=== PATIENT | male | born 1960 | race Caucasian/White ===

== ENCOUNTER → 2018-01-17 00:43 | Outpatient (CLI) | payer BC, SELFPAY ==
[2018-01-17 07:47] LABS: Abs Immature Grans 0.01 k/cumm (0.0-0.09); Absolute Basophil Count 0.03 k/cumm (0.0-0.2); Absolute Eosinophil Count 0.11 k/cumm (0.0-0.7); Absolute Lymphocyte Count 1.55 k/cumm (1.2-3.4); Absolute Monocyte Count 0.66 k/cumm (0.11-0.7); Basophils % 0.4; Eosinophils % 1.5; HCT 45.4 % (40.0-50.0); HGB 15.2 g/dL (13.5-17.5); Immature Grans % 0.1; Lymphocytes % 21.1; Mean Corp. HGB Concentration 33.5 g/dL (32.0-36.0); Mean Corpuscular Hemoglobin 31.1 pg (27.0-33.0); Mean Corpuscular Volume 92.8 fL (80-95); Mean Platelet Volume 9.9 fL (8.0-11.0); Neutrophils % 67.9; Platelet Count 249 x1000/uL (130-400); RBC 4.89 m/cumm (4.50-6.00); RBC Distribution Width 13.1 % (11.8-14.1); White Blood Cell Count 7.36 k/cumm (4.4-10.8)
[2018-01-17 07:51] LABS: Hemoglobin A1C 5.7 % (4.5-6.2)
[2018-01-17 07:57] LABS: Bilirubin Negative (Negative); Blood Negative (Negative); Clarity Clear; Glucose Negative (Negative); Ketones Negative (Negative); Leukocyte Esterase Negative (Negative); Nitrite Negative (Negative); Specific Gravity 1.025 (1.005-1.025); pH 6.5 (5-8)
[2018-01-17 08:25] LABS: ESR 7 MM/HR (1-20)
[2018-01-17 08:32] LABS: ALT 38 U/L (12-78); AST 16 U/L (15-37); Albumin 3.9 g/dL (3.4-5.0); Alkaline Phosphatase 75 U/L (46-116); Anion Gap 6.5 mmol/L (3-11); BUN 23 mg/dL (7-18); Bilirubin, Total 0.5 mg/dL (0.2-1.0); CO2 29.5 mmol/L (21.0-32.0); CREATININE 1.03 mg/dL (0.70-1.30); Calcium 8.9 mg/dL (8.5-10.1); Chloride 106 mmol/L (98-107); Glucose 107 mg/dL (70-100); Potassium 4.2 mmol/L (3.5-5.1); Sodium 142 mmol/L (136-145); TSH (W/Ref FT4) 1.37 uIU/mL (0.358-3.74); Total Protein 6.6 g/dL (6.4-8.2)
== END ==
PROVIDERS: PCP Emergency Medicine; Visit Provider Family Medicine
DX: R63.4 Abnormal weight loss (principal); Z12.5 Encounter for screening for malignant neoplasm of prostate
CPT/HCPCS: 36415; 80053; 84153; 85652; 81003; 83036; 84443; 85025

== ENCOUNTER 2018-10-08 12:22 | Outpatient (CLI) | payer BC, SELFPAY ==
--- NOTE | 2018-10-08 06:00 | DI.RAD_ITS ---
SYMPTOMS/DIAGNOSIS: CERVICAL RADICULOPATHY PAIN CLINIC CERVICAL SPINE: Fluoroscopy Time: 14 sec Images submitted from the Pain Clinic demonstrate needle positioning over the lower cervical spine in conjunction with an epidural steroid injection carried out by Dr. Borrero. Please see the procedure report for further information.
[2018-10-08 12:43] VITALS: BP 138/87; PULSE 68; RESP 16; TEMP 37; O2SAT 93
[2018-10-08 13:15] VITALS: BP 143/96; PULSE 70; RESP 17; O2SAT 99
[2018-10-08] MEDS: Omnipaque 240 MG/ML 50 ML BTL IJ (13:18)
[2018-10-08] MEDS: methylPREDNISolone ACETATE 40 MG/ML VIAL IJ (13:19)
--- NOTE | 2018-10-08 13:19 | PDOC.PAIN ---
Pain Clinic Procedure Note Current Active Problems Problem Status Onset Cervical stenosis of spinal canal Chronic Cervical Epidural Steroid Injection VIET YOUNG has been referred to the [facility] for cervical epidural steroid injection. COMMENTS:Patient has had multiple epidural steroid injections with good relief for almost a year each time. He has mostly neck pain with cervical stenosis. Patient was interviewed and the medical record reviewed. There were no medical, pharmacologic, radiographic or other structural contraindications to attempting fluoroscopically guided epidural steroid injection. Risks and expected side effects as well as potential benefit of the procedure were reviewed and voiced concerns addressed. The printed consent form was signed and witnessed. Standard time-out procedure was performed. The patient was placed in the prone position on the fluoroscopy table and automated blood pressure cuff and pulse oximeter applied. The skin entry point for entering the epidural space by a midline C7-T1 interlaminar approach was identified under fluoroscopy and marked. Following thorough Chlorhexadine preparation of the skin and draping and 1% lidocaine infiltration of the skin entry point and subcutaneous tissues, an 17 gauge Tuohy needle was placed under fluoroscopic guidance and with loss of resistance technique into the epidural space. Upon needle placement and loss of resistance there were no paresthesiae or return of blood or CSF through the needle. An Arrow catheter was thread cephalad to the T0sflzg midline. 1ml of Omnipaque 240 were injected with clear epidural spread in the A/P, lateral and oblique views. 80mg Depomedrol with 1ml sterile normal saline were injected through the catheter with no unusual discomfort expressed. Vital signs were stable throughout the procedure and were as recorded in the docflowsheet by the nursing staff. If given, dosages of intravenous drugs for anxiolysis and analgesia were documented in MAR. Follow up plans and appointments were discussed. Post procedure instruction was given as documented in nursing documentation and having met discharge criteria and was discharged from the [facility]. COMMENTS: He will follow up as needed CC: Fernando Crowder DO
== END 2018-10-08 12:42 ==
PROVIDERS: PCP Emergency Medicine; Visit Provider Anesthesiology Pain Medicine
DX: M48.02 Spinal stenosis, cervical region (principal)
CPT/HCPCS: 62321; 72040; J1030; Q9967

== ENCOUNTER 2018-10-31 11:05 | Emergency (ER) | payer BC, SELFPAY ==
[2018-10-31] VITALS (12 sets, daily range): BP systolic 139–150; BP diastolic 83–93; PULSE 55–68; RESP 14–27; TEMP 36.7; O2SAT 94–97
--- NOTE | 2018-10-31 11:34 | W.ED.GENAD ---
Discharge Plan Disposition Patient Disposition: HOME Condition: Stable Discharge Details Chief Complaint: Headache Clinical Impression: Cervical stenosis of spinal canal, Migraine Primary Care Provider: Fernando Crowder ED Provider: George Valdivia Home Meds and New Rx's Prescriptions: Continued amlodipine 5 MG tablet 5 mg PO DAILY Qty: 90 RF: 4 Eurax 60 GM lotion 60 gm Topical Twice Qty: 1 RF: 1 omeprazole 20 mg capsule,delayed release(DR/EC) 20 mg PO DAILY Qty: 90 RF: 4 baclofen 10 mg tablet 10 mg PO DAILY Qty: 90 RF: 3 lorazepam 0.5 mg tablet 1.5 mg PO HS Qty: 90 RF: 5 No Action diclofenac sodium 75 mg tablet,delayed release (DR/EC) PO Qty: 90 RF: 0 Discharge Instructions Instructions: Migraine Headache (ED) Additional Instructions: Continue to take your normal medication and you may also use [id number] Excedrin Migraine for any further headache symptoms. Return to the emergency department for any new or significant worsening of symptoms otherwise follow-up with your primary care provider for reassessment. Referrals: Fernando Crowder, [Primary Care Provider] - (As needed for reassessment) Discharge Data Discharge Date/Time-TO BE ENTERED AT DEPARTURE: 10/31/18 14:35 Medical Decision Making Patient presenting to the emergency department for chief complaint of headache. Patient states that he has a long ongoing history of headaches some of more secondary to his chronic neck pain. Patient typically gets 1 injection/year into his neck which relieves his neck symptoms and significantly reduces or eliminates his headache. Patient states that he had injection a couple weeks ago that per his report felt different and since then has had intermittent headaches over the past couple weeks. He does state that this headache feels similar to previous ones and feels behind his left eye with photophobia nausea and vomiting. Patient denies any injury or trauma, fever chills, focal neurological deficits. Physical exam shows some photophobia and cervical soft tissue tenderness diffuse to the left trapezius without any specific finding through the cervical vertebral bodies. Patient is otherwise neurologically intact with no focal deficits noted on exam. Plan to treat headache with ketorolac, Compazine, Benadryl, diazepam, and IV fluids and review pain clinic notes. After review of pain clinic notes it appears that his epidural injection was without any complications but consideration of cervical epidural abscess or hematoma is a possibility so plan to check labs and CT imaging but given that this was actually almost a month ago I feel that these are low likelihood's. Pending these results patient was reassessed and stated that he is started having significant improvement of his headache. Labs were reviewed and show no significant leukocytosis, otherwise nondiagnostic CMP with no worrisome findings. Discussed with radiologist cervical CT with contrast which showed no acute findings. Patient reassessed and stated full resolution of his pain and discomfort. Patient was encouraged to follow-up with his primary care provider and/or pain clinic for further discussion about controlling his discomfort otherwise to continue to use his typical headache medications that he uses at home. Emergent return precautions were discussed. After discussion of diagnosis and plan of care patient is no further needs, questions, or concerns and states clear understanding to return to the emergency department for any worsening symptoms. HPI General Mode of arrival: ambulatory. Date/Time Provider Initiated Documentation: 10/31/18 11:14. Limitations to Documentation: no limitations. Information obtained by: patient and RN notes reviewed. History of Present Illness 58 year old M presents to the emergency department with the chief complaint of headache, described as moderate and similar to prior episodes, with intensity rated at 9. Quality is described as sharp, and is localized to the head. Patient started experiencing this week(s) (2) and it has been intermittent. Patient notes nausea/vomiting. Patient did receive the following treatments prior to arrival, NSAID Related Data Home Medications Medication Instructions Recorded Confirmed amlodipine 5 mg PO DAILY #90 tab-cap 12/31/17 11/03/18 Eurax 60 gm TOPICAL Twice #1 script 02/14/18 11/03/18 omeprazole 20 mg capsule,delayed 20 mg PO DAILY #90 tab-cap 03/12/18 11/03/18 release baclofen 10 mg tablet 10 mg PO DAILY #90 tab 05/27/18 11/03/18 lorazepam 0.5 mg tablet 1.5 mg PO HS #90 tab-cap 08/19/18 11/03/18 diclofenac sodium 75 mg PO #90 tab 11/03/18 11/03/18 tablet,delayed release Previous Rx's Medication Instructions Recorded amlodipine 5 mg PO DAILY #90 tab-cap 12/31/17 Eurax 60 gm TOPICAL Twice #1 script 02/14/18 omeprazole 20 mg capsule,delayed 20 mg PO DAILY #90 tab-cap 03/12/18 release baclofen 10 mg tablet 10 mg PO DAILY #90 tab 05/27/18 lorazepam 0.5 mg tablet 1.5 mg PO HS #90 tab-cap 08/19/18 Allergies Allergy/AdvReac Type Severity Reaction Status Date / Time No Known Allergies Allergy Verified 11/03/18 08:49 General Stated Complaint: Headache KATHLEEN: 3 Review of Systems Constitutional Denies body ache(s), Reports chills, Denies fever(s) and Reports headache(s) Eyes Denies change in vision and Reports photophobia ENT Denies dizziness, Reports headache(s) and Reports neck pain (chronic) Cardiovascular Denies chest pain and Denies syncope Gastrointestinal Reports nausea and Reports vomiting Musculoskeletal Reports neck pain (chronic), Denies numbness and Denies tingling Neurologic Reports as per HPI, Denies confusion, Denies dizziness, Denies syncope, Reports headache(s), Denies numbness, Denies sensory deficit and Denies tingling Psychiatric Denies confusion PFSH Surgical History Colonoscopy - MAC Hemorrhoidectomy Social History Smoking/Tobacco Use Status: Never Alcohol Intake: current Alcohol Intake frequency: 3 or more drinks per day Alcohol type: beer Drug use: Never Do you feel safe at home: Yes Do you feel safe in your relationship?: Yes Additional Social history: unable to assess privately Exam Const General: cooperative, healthy appearing, no acute distress and well groomed Orientation: alert, awake and oriented x3 HENMT Head: normal to inspection Ears: hearing grossly normal bilaterally and TM's normal bilaterally Mouth: oral mucosae normal and moist mucous membranes Throat: posterior oropharynx normal Eyes Visual Rdz: normal visual rdz by confrontation Alignment and Position: alignment normal Periorbital: periorbital findings normal Eyelids: eyelids normal Sclera: sclerae normal Cornea: corneas normal Pupils: PERRL EOM: EOM intact bilaterally Neck Neck: normal visual inspection, full ROM, no lymphadenopathy and no meningeal signs Resp Effort & Inspection: normal respiratory effort and able to speak in complete sentences Auscultation: clear to auscultation bilaterally Cardio Rate: regular rate Rhythm: regular rhythm Heart Sounds: S1 normal and S2 normal Back/Spine/Pelvis Cervical Spine: cervical muscular tenderness (> on left), No cervical spinal tenderness and No step off deformity Neuro General: alert, awake, oriented x3, gait normal, tone normal, moves all extremities, CN's II-XI intact bilaterally and not confused Cognition: normal cognition Speech: speech normal Motor: muscle tone normal throughout, strength 5/5 throughout, no pronator drift, no movement abnormalities noted and no fasciculations Sensory Exam: no sensory deficits noted Coordination: Romberg test normal, Does not sway with eyes open and rapid alternating movement UE normal Course Vital Signs Temperature 36.7 C 10/31/18 11:08 Pulse 65 10/31/18 11:08 Respiratory Rate 17 10/31/18 11:08 Blood Pressure 150/93 H 10/31/18 11:08 Pulse Oximetry 97 10/31/18 11:08 Temperature 36.7 C 10/31/18 11:08 Temperature Source Temporal Artery Scan 10/31/18 11:08 Pulse 65 10/31/18 11:08 Respiratory Rate 17 10/31/18 11:08 Respiratory Effort Non-Labored 10/31/18 11:16 Blood Pressure 150/93 H 10/31/18 11:08 Blood Pressure Position Sitting 10/31/18 11:08 Pulse Oximetry 97 10/31/18 11:08 Oxygen Delivery Method Room Air 10/31/18 11:08 Oxygen Flow Rate 0 10/31/18 11:08 Pain Level 10 10/31/18 11:16 Comment 10/31/18 11:08
--- NOTE | 2018-10-31 11:37 | ED.GENADUL_ITS ---
Discharge Plan Disposition Patient Disposition: HOME Condition: Stable Discharge Details Chief Complaint: Headache Clinical Impression: Cervical stenosis of spinal canal, Migraine Primary Care Provider: Fernando Crowder ED Provider: George Valdivia Home Meds and New Rx's Prescriptions: Continued amlodipine 5 MG tablet 5 mg PO DAILY Qty: 90 RF: 4 Eurax 60 GM lotion 60 gm Topical Twice Qty: 1 RF: 1 omeprazole 20 mg capsule,delayed release(DR/EC) 20 mg PO DAILY Qty: 90 RF: 4 baclofen 10 mg tablet 10 mg PO DAILY Qty: 90 RF: 3 lorazepam 0.5 mg tablet 1.5 mg PO HS Qty: 90 RF: 5 No Action diclofenac sodium 75 mg tablet,delayed release (DR/EC) PO Qty: 90 RF: 0 Discharge Instructions Instructions: Migraine Headache (ED) Additional Instructions: Continue to take your normal medication and you may also use [id number] Excedrin Migraine for any further headache symptoms. Return to the emergency department for any new or significant worsening of symptoms otherwise follow-up with your primary care provider for reassessment. Referrals: Fernando Crowder, [Primary Care Provider] - (As needed for reassessment) Discharge Data Discharge Date/Time-TO BE ENTERED AT DEPARTURE: 10/31/18 14:35 Medical Decision Making Patient presenting to the emergency department for chief complaint of headache. Patient states that he has a long ongoing history of headaches some of more secondary to his chronic neck pain. Patient typically gets 1 injection/year into his neck which relieves his neck symptoms and significantly reduces or eliminates his headache. Patient states that he had injection a couple weeks ago that per his report felt different and since then has had intermittent headaches over the past couple weeks. He does state that this headache feels similar to previous ones and feels behind his left eye with photophobia nausea and vomiting. Patient denies any injury or trauma, fever chills, focal neurological deficits. Physical exam shows some photophobia and cervical soft tissue tenderness diffuse to the left trapezius without any specific finding through the cervical vertebral bodies. Patient is otherwise neurologically intact with no focal deficits noted on exam. Plan to treat headache with ketorolac, Compazine, Benadryl, diazepam, and IV fluids and review pain clinic notes. After review of pain clinic notes it appears that his epidural injection was without any complications but consideration of cervical epidural abscess or hem atoma is a possibility so plan to check labs and CT imaging but given that this was actually almost a month ago I feel that these are low likelihood's. Pending these results patient was reassessed and stated that he is started having significant improvement of his headache. Labs were reviewed and show no significant leukocytosis, otherwise nondiagnostic CMP with no worrisome findings. Discussed with radiologist cervical CT with contrast which showed no acute findings. Patient reassessed and stated full resolution of his pain and discomfort. Patient was encouraged to follow-up with his primary care provider and/or pain clinic for further discussion about controlling his discomfort otherwise to continue to use his typical headache medications that he uses at home. Emergent return precautions were discussed. After discussion of diagnosis and plan of care patient is no further needs, questions, or concerns and states clear understanding to return to the emergency department for any worsening symptoms. HPI General Mode of arrival: ambulatory . Date/Time Provider Initiated Documentation: 10/31/18 11:14 . Limitations to Documentation: no limitations . Information obtained by: patient and RN notes reviewed . History of Present Illness 58 year old M presents to the emergency department with the chief complaint of headache, described as moderate and similar to prior episodes, with intensity rated at 9. Quality is described as sharp, and is localized to the head. Patient started experiencing this week(s) (2) and it has been intermittent. Patient notes nausea/vomiting. Patient did receive the following treatments prior to arrival, NSAID Related Data Home Medications Medication Instructions Recorded Confirmed amlodipine 5 mg PO DAILY #90 tab-cap 12/31/17 11/03/18 Eurax 60 gm TOPICAL Twice #1 script 02/14/18 11/03/18 omeprazole 20 mg capsule,delayed 20 mg PO DAILY #90 tab-cap 03/12/18 11/03/18 release baclofen 10 mg tablet 10 mg PO DAILY #90 tab 05/27/18 11/03/18 lorazepam 0.5 mg tablet 1.5 mg PO HS #90 tab-cap 08/19/18 11/03/18 diclofenac sodium 75 mg PO #90 tab 11/03/18 11/03/18 tablet,delayed release Previous Rx's Medication Instructions Recorded amlodipine 5 mg PO DAILY #90 tab-cap 12/31/17 Eurax 60 gm TOPICAL Twice #1 script 02/14/18 omeprazole 20 mg capsule,delayed 20 mg PO DAILY #90 tab-cap 03/12/18 release baclofen 10 mg tablet 10 mg PO DAILY #90 tab 05/27/18 lorazepam 0.5 mg tablet 1.5 mg PO HS #90 tab-cap 08/19/18 Allergies Allergy/AdvReac Type Severity Reaction Status Date / Time No Known Allergies Allergy Verified 11/03/18 08:49 General Stated Complaint: Headache KATHLEEN: 3 Review of Systems Constitutional Denies body ache(s), Reports chills, Denies fever(s) and Reports headache(s) Eyes Denies change in vision and Reports photophobia ENT Denies dizziness, Reports headache(s) and Reports neck pain (chronic) Cardiovascular Denies chest pain and Denies syncope Gastrointestinal Reports nausea and Reports vomiting Musculoskeletal Reports neck pain (chronic), Denies numbness and Denies tingling Neurologic Reports as per HPI, Denies confusion, Denies dizziness, Denies syncope, Reports headache(s), Denies numbness, Denies sensory deficit and Denies tingling Psychiatric Denies confusion PFS Surgical History Colonoscopy - MAC Hemorrhoidectomy Social History Smoking/Tobacco Use Status: Never Alcohol Intake: current Alcohol Intake frequency: 3 or more drinks per day Alcohol type: beer Drug use: Never Do you feel safe at home: Yes Do you feel safe in your relationship?: Yes Additional Social history: unable to assess privately Exam Const General: cooperative, healthy appearing, no acute distress and well groomed Orientation: alert, awake and oriented x3 HENMT Head: normal to inspection Ears: hearing grossly normal bilaterally and TM's normal bilaterally Mouth: oral mucosae normal and moist mucous membranes Throat: posterior oropharynx normal Eyes Visual Rdz: normal visual rdz by confrontation Alignment and Position: alignment normal Periorbital: periorbital findings normal Eyelids: eyelids normal Sclera: sclerae normal Cornea: corneas normal Pupils: PERRL EOM: EOM intact bilaterally Neck Neck: normal visual inspection, full ROM, no lymphadenopathy and no meningeal signs Resp Effort & Inspection: normal respiratory effort and able to speak in complete sentences Auscultation: clear to auscultation bilaterally Cardio Rate: regular rate Rhythm: regular rhythm Heart Sounds: S1 normal and S2 normal Back/Spine/Pelvis Cervical Spine: cervical muscular tenderness (> on left), No cervical spinal tenderness and No step off deformity Neuro General: alert, awake, oriented x3, gait normal, tone normal, moves all extremities, CN's II-XI intact bilaterally and not confused Cognition: normal cognition Speech: speech normal Motor: muscle tone normal throughout, strength 5/5 throughout, no pronator drift, no movement abnormalities noted and no fasciculations Sensory Exam: no sensory deficits noted Coordination: Romberg test normal, Does not sway with eyes open and rapid alternating movement UE normal Course Vital Signs Temperature 36.7 C 10/31/18 11:08 Pulse 65 10/31/18 11:08 Respiratory Rate 17 10/31/18 11:08 Blood Pressure 150/93 H 10/31/18 11:08 Pulse Oximetry 97 10/31/18 11:08 Temperature 36.7 C 10/31/18 11:08 Temperature Source Temporal Artery Scan 10/31/18 11:08 Pulse 65 10/31/18 11:08 Respiratory Rate 17 10/31/18 11:08 Respiratory Effort Non-Labored 10/31/18 11:16 Blood Pressure 150/93 H 10/31/18 11:08 Blood Pressure Position Sitting 10/31/18 11:08 Pulse Oximetry 97 10/31/18 11:08 Oxygen Delivery Method Room Air 10/31/18 11:08 Oxygen Flow Rate 0 10/31/18 11:08 Pain Level 10 10/31/18 11:16 Comment 10/31/18 11:08
[2018-10-31] MEDS: diazePAM 10 MG/2 ML SYR 2.5 MG IVP (11:48)
[2018-10-31] MEDS: Ketorolac 30 MG/ML VIAL IVP (11:49)
[2018-10-31] MEDS: diphenhydrAMINE 50 MG/ML VIAL 25 MG IVP (11:49)
[2018-10-31] MEDS: Normal Saline 1,000 ML 1000 ML IV (11:50)
[2018-10-31] MEDS: Prochlorperazine 10 MG/2 ML VIAL IVP (11:51)
[2018-10-31 11:54] LABS: Abs Immature Grans 0.01 k/cumm (0.0-0.09); Absolute Basophil Count 0.01 k/cumm (0.0-0.2); Absolute Eosinophil Count 0.02 k/cumm (0.0-0.7); Absolute Lymphocyte Count 1.01 k/cumm (1.2-3.4); Absolute Monocyte Count 0.39 k/cumm (0.11-0.7); Absolute Neutrophil Count 5.86 k/cumm (1.2-6.7); Basophils % 0.1; Eosinophils % 0.3; HCT 45.7 % (40.0-50.0); HGB 15.7 g/dL (13.5-17.5); Immature Grans % 0.1; Lymphocytes % 13.8; Mean Corp. HGB Concentration 34.4 g/dL (32.0-36.0); Mean Corpuscular Volume 90.3 fL (80-95); Mean Platelet Volume 9.8 fL (8.0-11.0); Monocytes % 5.3; Neutrophils % 80.4; Platelet Count 266 x1000/uL (130-400); RBC 5.06 m/cumm (4.50-6.00); RBC Distribution Width 12.5 % (11.8-14.1)
[2018-10-31 12:07] LABS: ALT 30 U/L (12-78); AST 15 U/L (15-37); Albumin 3.8 g/dL (3.4-5.0); Alkaline Phosphatase 65 U/L (46-116); Anion Gap 10.6 mmol/L (3-11); BUN 22 mg/dL (7-18); Bilirubin, Total 0.3 mg/dL (0.2-1.0); CO2 25.4 mmol/L (21.0-32.0); CREATININE 0.89 mg/dL (0.70-1.30); Calcium 9.2 mg/dL (8.5-10.1); Chloride 105 mmol/L (98-107); Glucose 120 mg/dL (70-100); Potassium 3.9 mmol/L (3.5-5.1); Sodium 141 mmol/L (136-145); Total Protein 7.1 g/dL (6.4-8.2)
[2018-10-31 12:08] LABS: PTT Activated 24.1 sec (21.0-31.4); Prothrombin Time 9.8 sec (9.3-11.0)
--- NOTE | 2018-10-31 13:30 | DI.CT_ITS ---
SYMPTOMS/DIAGNOSIS: NECK PAIN CT OF THE CERVICAL SPINE: A noncontrast exam was performed. There is no evidence of fracture. Degenerative disc changes are seen throughout. There is no paraspinal hematoma or evidence of abscess or other fluid collection. The parotid, submandibular and thyroid glands are unremarkable. No adenopathy is seen. The mastoid air cells appear clear. The lung apices appear clear. IMPRESSION: Degenerative disc changes in the cervical spine. No evidence of paraspinal hematoma or other fluid collection.
== END 2018-10-31 14:35 | disposition home or self-care (01) ==
PROVIDERS: Emergency Provider Nurse Practitioner Family; PCP Emergency Medicine
DX: M48.02 Spinal stenosis, cervical region (principal); G43.909 Migraine, unspecified, not intractable, without status migrainosus
CPT/HCPCS: 36415; 80053; 96361; 96374; 96375; 99284; 72125; 85025; 85610; 85730; J0780; J1200; J1885; J3360

== ENCOUNTER 2018-12-09 00:45 | Outpatient (CLI) | payer BC, SELFPAY ==
--- NOTE | 2018-12-09 16:19 | DI.MRI_ITS ---
SYMPTOM/DIAGNOSIS: FINGER NUMBNESS, R20.0, NECK PAIN, M54.2, UPPER EXT PAIN, M79.603 CERVICAL SPINE MRI: MRI examination of the cervical spine was performed according to the usual protocol. No significant bony signal abnormality is seen. Visualized posterior fossa structures appear intact. Spinal cord shows normal signal throughout. There is multi level prominence of the disc osteophyte complex extending from C 3-4 through C 6-7. There is bilateral neural foraminal narrowing at C 4-5, C 5- 6 and C 6-7, most prominent left sided at C 5-6 and C 6-7. There is mild anterior contour abnormality of the spinal cord at C 5-6 and C 6-7, particularly to the left at C 6-7. There is borderline central canal spinal stenosis at C 6- 7. Comparison with previous examination of 12/10/16 shows little interval change in appearance in comparison with the previous study. CONCLUSION: Multi level prominence of disc osteophyte complex with multi level neural foraminal narrowing and mild central canal spinal stenosis at C 6-7. The findings appear stable since 12/10/16.
== END 2018-12-09 01:05 ==
PROVIDERS: PCP Emergency Medicine; Visit Provider Neurological Surgery
DX: M54.2 Cervicalgia (principal); M79.603 Pain in arm, unspecified; R20.0 Anesthesia of skin; M48.02 Spinal stenosis, cervical region; M47.812 Spondylosis without myelopathy or radiculopathy, cervical region
CPT/HCPCS: 72141

== ENCOUNTER 2020-02-03 09:55 | Outpatient (REF) | payer BC, SELFPAY ==
[2020-02-03 13:12] LABS: Calculated LDL 146 mg/dL (<100); Cholesterol 209 mg/dL (<200); HDL Cholesterol 44 mg/dL (40-60); Triglyceride 95 mg/dL (<150)
[2020-02-03 13:13] LABS: Hemoglobin A1C 5.7 % (3.8-5.6)
== END 2020-02-03 10:15 ==
LOC: LBN 09:55
PROVIDERS: PCP Emergency Medicine; Visit Provider Emergency Medicine
DX: E11.9 Type 2 diabetes mellitus without complications (principal); I10 Essential (primary) hypertension; E66.9 Obesity, unspecified
CPT/HCPCS: 80061; 83036

== ENCOUNTER 2020-12-16 15:18 | Outpatient (REF) | payer BC, SELFPAY ==
--- NOTE | 2020-12-16 14:10 | SKI_PTH ---
PATIENT: Anup Huerta LOC: N U#:[id number] AGE/SX: 60/M ROOM: RE12/16/[address]: MICHAEL Bocanegra : 1960 BED: DIS: 12/16/2020 SPEC #: [id number] RECD: 12/16/20 16:00 STATUS: PERLA RERosalio #: [id number] YENNIFER: 12/16/20 14:[address]: Marla Green DEPT: Surgical Specimen RECD BY: Kendal Puente ENTERED: 12/16/20 16:01 SP TYPE: TORSTEN OT DR: Fernando Crowder DO Tissues: 1 - SKIN CYST/TAG/DEBRIDEMENT Procedures: GROSS AND MICRO LEVEL 3 Comments: [id number]
== END 2020-12-16 15:19 | disposition home or self-care (01) ==
LOC: LBN 15:18
PROVIDERS: PCP Emergency Medicine; Visit Provider Physical Therapy Assistant
DX: L72.0 Epidermal cyst (principal)
CPT/HCPCS: 88304

== ENCOUNTER 2021-12-01 01:51 | Outpatient (CLI) | payer BC, SELFPAY ==
[2021-12-01 16:04] LABS: Hemoglobin A1C 5.6 % (<5.7)
[2021-12-01 16:54] LABS: ALT 45 U/L (16-63); AST 21 U/L (15-37); Albumin 4.1 g/dL (3.4-5.0); Alkaline Phosphatase 85 U/L (46-116); Anion Gap 6.9 mmol/L (3-11); BUN 25 mg/dL (7-18); Bilirubin, Total 0.3 mg/dL (0.2-1.0); CO2 28.1 mmol/L (21.0-32.0); CREATININE 1.2 mg/dL (0.70-1.30); Chloride 106 mmol/L (98-107); Cholesterol 194 mg/dL (<200); Glucose 99 mg/dL (74-106); HDL Cholesterol 44 mg/dL (40-60); Potassium 4.1 mmol/L (3.5-5.1); Sodium 141 mmol/L (136-145); Total Protein 6.6 g/dL (6.4-8.2)
[2021-12-01 17:06] LABS: Calculated LDL 126 mg/dL (<100); Triglyceride 120 mg/dL (<150)
[2021-12-04 09:29] LABS: PSA, Screening 1.2 ng/mL (<=4.5)
[2021-12-04 11:18] LABS: Hepatitis C Ab w Rflx HCV PCR Negative (Negative)
[2021-12-04 11:24] LABS: HIV-1/2 Ag & Ab Screen Negative (Negative)
== END 2021-12-01 01:52 | disposition home or self-care (01) ==
LOC: LBO 01:52
PROVIDERS: PCP Nurse Practitioner Family; Visit Provider Family Medicine
DX: I10 Essential (primary) hypertension (principal); R73.9 Hyperglycemia, unspecified; Z11.4 Encounter for screening for human immunodeficiency virus [HIV]; Z11.59 Encounter for screening for other viral diseases; Z12.5 Encounter for screening for malignant neoplasm of prostate
CPT/HCPCS: 36415; 80053; 80061; 84153; 86803; 87389; 83036

== ENCOUNTER 2022-12-25 03:40 | Outpatient (CLI) | payer BC, SELFPAY ==
[2022-12-25 12:12] LABS: Estimated GFR 85.63 (mL/min/1.73m2); Potassium 3.6 mmol/L (3.5-5.1)
== END 2022-12-25 03:41 | disposition home or self-care (01) ==
LOC: LBO 03:40
PROVIDERS: PCP Nurse Practitioner Family; Visit Provider Nurse Practitioner Family
DX: I10 Essential (primary) hypertension (principal)
CPT/HCPCS: 36415; 82565; 84132

== ENCOUNTER 2023-01-14 07:46 | Day surgery (SDC) | payer BC, SELFPAY ==
--- NOTE | 2023-01-13 18:29 | W.ANESPRE ---
General Info Date of Service Date Performed: 01/14/23 Height: 5 ft 10 in Weight: 106.141 kg Body Mass Index (BMI): 33.5 Surgical Procedure: Operation Date: 01/14/23 09:05 Proposed Procedure Side Surgeon ivonne Agudelo MD Meds Allergies and Home Medications Allergies Allergy/AdvReac Type Severity Reaction Status Date / Time No Known Allergies Allergy Verified 01/14/23 08:09 Home Medication Medication Instructions Recorded acetaminophen 500 mg tablet 1,000 mg PO Q6H PRN 11/19/18 (Tylenol Extra Strength) amlodipine 5 mg tablet 5 mg PO DAILY #90 tab-caps 09/12/22 diclofenac sodium 75 mg 75 mg PO DAILY #90 tabs 09/12/22 tablet,delayed release omeprazole 20 mg capsule,delayed 20 mg PO DAILY #90 tab-caps 10/10/22 release losartan 100 1 tab PO DAILY #90 tabs 12/21/22 mg-hydrochlorothiazide 12.5 mg tablet baclofen 10 mg tablet 10 mg PO DAILY PRN back pain #90 12/27/22 tabs Current Visit Medications: Current Medications Generic Name Dose Route Start Last Admin Trade Name Freq PRN Reason Stop Dose Admin Ringer's Solution 1,000 mls @ 80 mls/hr 01/14/23 06:00 IV 01/14/23 23:59 INFUSION FRANCO IV Miscellaneous Supplies 1 each 01/14/23 06:00 Iv Access IV 01/14/23 23:59 DIRECTED FRANCO Sodium Chloride 0 ml 01/14/23 06:00 Normal Saline Flush 10 Ml Syr IV 01/14/23 23:59 PRN PRN Sodium Chloride 0 ml 01/14/23 06:00 Normal Saline 10 Ml Vial IJ 01/14/23 23:59 DIRECTED PRN Sterile Water 0 ml 01/14/23 06:00 Water,Injection,Sterile 10 Ml Vial IJ 01/14/23 23:59 DIRECTED PRN PFSH Active Problems Active Problems: Problem Status Onset Code GERD (gastroesophageal reflux disease) K21.9 Alcohol abuse F10.10 Essential hypertension 05/21/13 I10 Cervical stenosis of spinal canal M48.02 Polyp of colon K63.5 Obesity E66.9 Migraine G43.909 Low back pain M54.5 Hallux rigidus of right foot 08/09/17 M20.21 Medical History Medical History Benign paroxysmal positional vertigo Skin tags, multiple acquired Tension headache (10/12/14) Surgical History Surgical History Colonoscopy - MAC 2010-TUBULAR ADENOMA Hemorrhoidectomy Tobacco Smoking/Tobacco Use Status: Never Passive smoking exposure: Yes Second hand exposure: Yes Alcohol Alcohol Intake: current Alcohol intake frequency: 3 or more drinks per day Alcohol type: beer Substance Use Substance use: Rarely Substance use type: marijuana Vital Signs and Lab Results Vital Signs Most Recent Vital Signs in EMR: Temp Pulse Resp BP Pulse Ox 36.6 C 72 18 165/105 H 95 01/14/23 08:13 01/14/23 08:13 01/14/23 08:13 01/14/23 08:13 01/14/23 08:13 Lab Results Blood Type / Crossmatch: No Data to Display Complete Blood Count: No Data to Display Complete Metabolic Panel: Potassium 3.6 mmol/L (3.5-5.1) 12/25/22 11:19 Creatinine 1.0 mg/dL (0.70-1.30) 12/25/22 11:19 Est GFR (CKD-EPI 2020) 85.63 (mL/min/1.73m2) 12/25/22 11:19 Liver Function Panel: No Data to Display Coagulation Panel: No Data to Display Cardiac Panel: No Data to Display Arterial Blood Gas: No Data to Display Venous Blood Gas: No Data to Display Pancreas Panel: No Data to Display Thyroid Panel: No Data to Display Infectious Disease: No Data to Display Blood Cultures: No Data to Display Toxicology Panel: No Data to Display Anesthesia Assessment and Plan Anesthesia History Personal History: No History of Anesthesia Complications Family History: No Family History of Anesthesia Complications Exercise Tolerance Exercise Tolerance: Metabolic Equivalents>4 Pertinent Negatives Pertinent Negatives: No Symptoms of GERD and No Major Cardiovascular Symptoms or Complaints Cardiac & Pulmonary Exam Cardiac Exam: Normal S1/S2 Heart Sounds Pulmonary Exam: Clear Bilateral Breath Sounds Implantable Cardiac Device Does patient have a Pacemaker or an ICD?: No Airway Exam Known Difficult Airway: No Mallampati Class: 1 Mouth Opening: Normal (> 3cm) Thyromental Distance: Greater than 3 cm Neck Range of Motion: Full ROM Neck Circumference: Normal Teeth Condition: Normal Dentition ASA Classification ASA Score: ASA 2 Emergency Case?: No NPO Status NPO Status: NPO Clears >2 hours, Solids >8 hours Anesthesia Plan Resuscitation Status: Full Code Anesthesia Technique: General Anesthesia Airway Planned: Natural Airway Monitors Used: Standard Monitors Preoperative Comments:: 62 yo male for colo. Sig PMHx: GERD, daily EtOH, HTN, cervical stenosis, vertigo.
--- NOTE | 2023-01-13 19:51 | W.PM.DSUDISC ---
Date of service: 01/14/23 Time of Service: 09:26 Discharge Plan Disposition Patient Disposition: Home Condition: Good Discharge Details Reason For Visit: Screening colonoscopy Attending Provider: Sj Agudelo Primary Care Provider: Christian Edwards Home Meds and New Rx's Prescriptions: Continued acetaminophen [Tylenol Extra Strength] 500 mg tablet 1,000 mg PO Q6H PRN losartan-hydrochlorothiazide 100-12.5 mg tablet 1 tab PO DAILY Qty: 90 3RF amlodipine 5 mg tablet 5 mg PO DAILY Qty: 90 4RF diclofenac sodium 75 mg tablet,delayed release (DR/EC) 75 mg PO DAILY Qty: 90 1RF omeprazole 20 mg capsule,delayed release(DR/EC) 20 mg PO DAILY Qty: 90 3RF baclofen 10 mg tablet 10 mg PO DAILY PRN (Reason: back pain) Qty: 90 0RF Discontinued bisacodyl [Dulcolax (bisacodyl)] 5 mg tablet,delayed release (DR/EC) 5 mg PO ONCE Qty: 4 0RF Rx Instructions: Take per colonoscopy instructions provided by ordering providers office polyethylene glycol 3350 17 gram/dose powder 17 g PO ONCE Qty: 238 0RF Rx Instructions: Take per colonoscopy instructions provided by ordering providers office Discharge Instructions Instructions: Colorectal Polyps (GEN) Additional Instructions: Anup, we were able to complete your colonoscopy today without any difficulty. The quality of your prep was excellent. I did find 2 small polyps. I removed these both completely. I will be in touch when I have the results of the pathology report with my final recommendations. 1. If tolerated, consume a soft, low fiber diet for 1-2 days. 2. Do not drive, drink alcohol, operate machinery, make critical decisions, or do activities that require coordination or balance for 24 hours. 3. Because air was put into your colon during the procedure, expelling air from your rectum (passing gas or farting) is normal. 4. You may not have a bowel movement for 1-3 days because of the colonoscopy prep. This is normal. 5. Go directly to the emergency room if you notice any of the following: Develop chills (warm to touch), or if you have a thermometer and your temperature is above 101 Difficulty breathing or difficultly swallowing Persistent vomiting Severe abdominal pain, other than gas cramps Severe chest pain Black, tarry stools Any bleeding ? exceeding one tablespoon 6. Call your physician if the site where your intravenous was started becomes red, swollen, painful, and warm to touch. 7. Your physician has reviewed your pre-procedure medications. Please continue to take those medications as previously ordered. You will be given specific information/education regarding any changes to your medications before leaving. Stand Alone Forms: Anesthesia Discharge InstGage Conde (DSU) Activity:: Activity as Tolerated Diet:: As Tolerated Discharge Orders Discharge Orders: Discharge Order (Routine); Ordered 01/13/23 Ordered By: Sj Agudelo DS: Diagnosis Discharge Diagnosis (1) Screen for colon cancer: Status: Acute Asessment and Plan: I will follow-up on polypectomy results
--- NOTE | 2023-01-13 19:53 | W.COLOREPORT ---
Date of service: 01/14/23 Time of Service: 09:27 Colonoscopy Report Date of procedure: 01/14/23 Pre-op diagnosis general: Screening colnoscopy Post-op diagnosis procedure note: other (Colon polyps) Procedure: Colonoscopy with polypectomy Surgeon: Sj Agudelo Anesthesia Type: General:No Airway Estimated blood loss (mL): 10 Pathology: other (2.25 cm polyp at 35 cm, 0.25 cm polyp at 20 cm) Complications: None Disposition: same day Indications: Anup is 62 years old. He needs his next screening colonoscopy Prep: Miralax/Dulcolax Procedure Start Time: 08:53 Procedure End Time: 09:14 Retraction Time: 12 Findings: Polyps at 35 cm and 20 cm Procedure Description: After the induction of monitored anesthetic care, and with the patient in left lateral decubitus position, I began by performing an external anorectal exam.? Perineum and skin were normal, as was the anal verge.? There were some fibrosed external skin tags consistent with previous external hemorrhoids.? Next, I performed a digital rectal exam.? I did not appreciate any abnormal findings.? Next, I advanced a colonoscope into the rectal vault.? I performed retroflexion.? This was normal.? Using insufflation, I then advanced the colonoscope beyond the rectal folds and into the sigmoid colon before advancing towards the cecum.? The quality of the prep was excellent.? The scope was noted to be in the cecum by identification of the ileocecal valve and appendiceal orifice.? I then began withdrawing the colonoscope using repeated irrigation as necessary for full evaluation of the colonic mucosa. Around 35 cm from the anal verge I identified a 0.25 cm polyp. ?It appeared sessile in character. ?I was able to remove this with a cold forcep polypectomy. Similarly, there was a 0.25 cm polyp at 20 cm from the anal verge. This was also sessile, and it was also removed with cold forceps polypectomy. ?I examined the sites, and there was minimal bleeding. ?Once this was completed, I continued to withdraw the scope and examine the remainder of the colonic mucosa.?Once the scope was withdrawn to the level of the rectum, great care was taken to examine portions of the rectal folds.? Finally, the scope was withdrawn and the patient was brought to the same-day surgery recovery unit as the anesthetic wore off. ?The findings and instructions were shared with the patient prior to discharge.
[2023-01-14 08:13] VITALS: BP 165/105; PULSE 72; RESP 18; TEMP 36.6; O2SAT 95
[2023-01-14 08:23] VITALS: BMI 33.5
[2023-01-14] MEDS: Lactated Ringers 1,000 ML 80 ML IV (08:25)
--- NOTE | 2023-01-14 09:11 | BOWEL_PTH ---
PATIENT: Anup Huerta LOC: [facility] U#:[id number] AGE/SX: 62/M ROOM: RE01/14/[address]: Sj Agudelo MD : 1960 BED: DIS: 01/14/2023 SPEC #: [id number] RECD: 01/14/23 12:50 STATUS: PERLA RE #: [id number] YENNIFER: 01/14/23 09:[address]: Sj Agudelo DEPT: Surgical Specimen RECD BY: Kendal Puente ENTERED: 01/14/23 12:51 SP TYPE: Bowel OTHR DR: Christian Edwards, RISHABH Tissues: 1 - BIOPSY BOWEL 2 - BIOPSY BOWEL Procedures: GROSS AND MICRO LEVEL 4 Comments: [id number]
[2023-01-14 09:19] VITALS: BP 147/103; PULSE 80; RESP 16; TEMP 36.3; O2SAT 94
--- NOTE | 2023-01-14 09:32 | W.ANESPOSTOP ---
Postoperative Evaluation Date, Time and Location Date Performed: 01/14/23 Time Performed: 09:33 Patient Location: Day Surgery Unit Vital Signs Most Recent Imported Vital Signs: Most Recent Vital Signs Temp Pulse Resp BP Pulse Ox 36.3 C L 80 16 147/103 H 94 01/14/23 09:19 01/14/23 09:19 01/14/23 09:19 01/14/23 09:19 01/14/23 09:19 Pain Score Most Recent Pain Score: Most Recent Pain Score Pain Level 0 01/14/23 09:19 Assessment Mental Status: Awake (Alert & Oriented to Patient Baseline) Airway and Respiratory Function: Patent airway with normal (patient baseline) respiratory exam Cardiovascular Function: Hemodynamically Stable Hydration Status: Adequately Hydrated Nausea & Vomiting: No Nausea or Vomiting Pain: Pt. Denies Any Pain Peripheral Nerve Block: Patient did not receive a nerve block
[2023-01-14 09:44] VITALS: BP 149/104; PULSE 61; RESP 16; TEMP 36.2; O2SAT 97
== END 2023-01-14 10:02 | disposition home or self-care (01) ==
PROVIDERS: PCP Nurse Practitioner Family; Visit Provider Surgery
PROC: 0DJD8ZZ Inspection of Lower Intestinal Tract, Via Natural or Artificial Opening Endoscopic (ICD-10-PCS; CPT 45378; principal; 2023-01-14 09:00)
DX: Z12.11 Encounter for screening for malignant neoplasm of colon (principal); Z86.010 Personal history of colon polyps; D12.5 Benign neoplasm of sigmoid colon
CPT/HCPCS: 45380; 88305

== ENCOUNTER → 2023-05-14 01:37 | Outpatient (CLI) | payer BC, SELFPAY ==
--- NOTE | 2023-05-14 08:30 | DI.MRI_ITS ---
Exam(s) MR CERVICAL SPINE WO EXAM: MR CERVICAL SPINE WO CLINICAL HISTORY: Neck pain,CERVICAL STENOSIS,M48.02 TECHNIQUE: Multiplanar multisequence MRI of the cervical spine was performed without intravenous con trast. COMPARISON: MR MRI - CERVICAL SPINE WO CONT from 12/10/2016 FINDINGS: CERVICOMEDULLARY JUNCTION: Intact with no evidence of cerebellar tonsillar ectopia. No obvious abnor mality of the odontoid process. No evidence of Chiari 1 malformation. CERVICAL SPINAL CORD: There is no abnormal signal in the cervical spinal cord and no evidence of foca l cord atrophy nor focal cord swelling. OSSEOUS:There are no cervical fractures evident. No significant osseous lesions in the cervical vert ebrae. There is no reversal of the normal cervical curvature. INDIVIDUAL LEVELS: C2-3: No disc herniation nor central canal stenosis. Mild facet degenerative changes on the left yoli e. No facet degenerative changes on the right side. No foraminal narrowing C3-4: This level exhibits moderate disc space narrowing and broad annular bulging, more so than previ ous as well as small bilateral Luschka joint osteophytes more so than previous. There is effacement of the anterior thecal sac evident. AP canal dimensions lower normal, measuring 11 mm. No abnormal signal in the cord. Facet joints at this level exhibit some degenerative change on the right and unr emarkable on the left. Significant narrowing of the bilateral exiting neural foramina at this level compound by the bilateral Luschka joint osteophytes. C4-5: Moderate disc space narrowing and anterior osteophytes evident. Mild annular bulging without a distinct focal disc herniation. Central canal dimensions are lower normal. AP measurement 14 mm. Facet joints exhibit moderate degenerative change on the right and no degenerative change on the left . Significant foraminal stenosis on the right side. Mild foraminal stenosis on the left side. C5-6: Mild decreased disc height. Broad annular bulging without a dominant disc herniation. The beltran ular bulging effaces the anterior thecal sac but not the spinal cord. Central canal AP measurement 1 1 mm. There are minimal degenerative changes in the facet joints at this level. Mild bilateral fora edilberto stenosis due to annular bulging and small Luschka joint osteophytes. C6-7: Mild-moderate disc space narrowing. Broad relatively symmetrical annular bulging which effaces the anterior thecal sac and contacts the cervical spinal cord but without abnormal signal in the cor d. Central canal dimensions lower normal with AP measurement 11 mm. No abnormal signal in the cord. Minimal degenerative changes in the facet joints at this level. Mild bilateral foraminal stenosis at this level mostly due to annular bulging and small Luschka joint osteophytes. C7-T1: No disc herniation, annular bulging, nor central canal stenosis. Moderate bilateral facet arth ropathy butno significant foraminal stenosis. IMPRESSION: 1. Multilevel chronic degenerative disc disease changes as described individually, with mild progress ion when compared to prior MRI November 2018. 2. There is multilevel annular bulging and bilateral Luschka joint osteophytes contributing to an jordan ment of bilateral foraminal stenosis at multiple levels. 3. There is no prominent central canal stenosis. No evidence of abnormal signal in the cervical spin al cord and no evidence of focal cord atrophy nor focal cord swelling. DATA REPOSITORY:
== END ==
PROVIDERS: PCP Nurse Practitioner Family; Visit Provider Nurse Practitioner Family
DX: M48.02 Spinal stenosis, cervical region (principal)
CPT/HCPCS: 72141

== ENCOUNTER 2023-09-18 13:17 | Outpatient (CLI) | payer BC, SELFPAY ==
[2023-09-19 09:55] LABS: Lyme Ab w Rflx to Lyme Confirm Negative (Negative)
[2023-09-21 15:36] LABS: Anaplasma phagocytophilum Negative (Negative); B. miyamotoi PCR Negative (Negative); Babesia divergens/MO-1 Negative (Negative); Babesia duncani Negative (Negative); Babesia microti Negative (Negative); Ehrlichia chaffeensis Negative (Negative); Ehrlichia ewingii/canis Negative (Negative); Ehrlichia muris eauclairensis Negative (Negative)
== END 2023-09-18 13:18 | disposition home or self-care (01) ==
LOC: LBO 13:18
PROVIDERS: PCP Nurse Practitioner Family; Visit Provider Nurse Practitioner Family
DX: W57.XXXA Bitten or stung by nonvenomous insect and other nonvenomous arthropods, initial encounter (principal); S40.862A Insect bite (nonvenomous) of left upper arm, initial encounter
CPT/HCPCS: 36415; 87798; 86618

== ENCOUNTER 2023-12-30 17:05 | Outpatient (CLI) | payer BC, SELFPAY ==
[2023-12-30 16:56] LABS: Hemoglobin A1C 5.6 % (<5.7)
[2023-12-30 17:56] LABS: Calculated LDL 134 mg/dL (<100); Cholesterol 218 mg/dL (<200); HDL Cholesterol 48 mg/dL (40-60); Potassium 3.7 mmol/L (3.5-5.1); Triglyceride 181 mg/dL (<150)
== END 2023-12-30 17:06 | disposition home or self-care (01) ==
LOC: LBO 17:06
PROVIDERS: PCP Nurse Practitioner Family; Visit Provider Nurse Practitioner Family
DX: I10 Essential (primary) hypertension (principal); Z13.1 Encounter for screening for diabetes mellitus; Z13.220 Encounter for screening for lipoid disorders
CPT/HCPCS: 36415; 80061; 82565; 83036; 84132

== ENCOUNTER 2025-01-20 18:59 | Outpatient (CLI) | payer BC, SELFPAY ==
[2025-01-20 18:24] LABS: Anion Gap 6.9 mmol/L (3-11); BUN 17 mg/dL (7-18); CO2 28.1 mmol/L (21.0-32.0); Calcium 9.2 mg/dL (8.5-10.1); Calculated LDL 116 mg/dL (<100); Chloride 104 mmol/L (98-107); Cholesterol 177 mg/dL (<200); Estimated GFR 84.57 (mL/min/1.73m2); Glucose 92 mg/dL (74-106); HDL Cholesterol 42 mg/dL (>or=40); Potassium 3.7 mmol/L (3.5-5.1); Sodium 139 mmol/L (136-145); Triglyceride 96 mg/dL (<150)
[2025-01-20 18:33] LABS: Hemoglobin A1C 5.3 % (<5.7)
[2025-01-21 19:01] LABS: PSA, Screening 2.8 ng/mL (<=4.5)
== END 2025-01-20 19:00 | disposition home or self-care (01) ==
LOC: LBO 19:00
PROVIDERS: PCP Nurse Practitioner Family; Visit Provider Nurse Practitioner Family
DX: I10 Essential (primary) hypertension (principal); Z13.220 Encounter for screening for lipoid disorders; Z13.1 Encounter for screening for diabetes mellitus; Z12.5 Encounter for screening for malignant neoplasm of prostate
CPT/HCPCS: 36415; 80048; 80061; 84153; 83036

== ENCOUNTER 2025-03-10 01:24 | Outpatient (CLI) | payer BC, SELFPAY ==
--- NOTE | 2025-03-10 06:45 | DI.RAD_ITS ---
Exam(s) XR SHOULDER LT COMPLETE 2+V EXAM: XR SHOULDER LT COMPLETE 2+V CLINICAL HISTORY: Left shoulder pain, popping,tendinitis,m77.9. TECHNIQUE: 2D digital imaging was performed of the left shoulder. Five images were obtained. AP, Grashey, Y-view and axillary views were obtained. COMPARISON: No exams were available for comparison FINDINGS: BONES: No acute fracture is present. No bony destructive lesion is seen. JOINTS: No dislocation present. There are mild degenerative changes seen at the acromioclavicular joint. The glenohumeral joint is well maintained. SOFT TISSUE: Normal. IMPRESSION: There is no acute abnormality. DATA REPOSITORY: RADIATION DOSE DELIVERED:
== END 2025-03-10 01:44 ==
LOC: DI 01:25
PROVIDERS: PCP Nurse Practitioner Family; Visit Provider Physician Assistant Medical
DX: M77.9 Enthesopathy, unspecified (principal); M25.512 Pain in left shoulder
CPT/HCPCS: 73030